=== PATIENT | female | born 1965 | race Two or more races ===

== ENCOUNTER 2024-07-30 23:58 | Emergency (ER) | payer OTHER, MEDICAID, SELFPAY ==
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
[2024-07-31 00:17] VITALS: BP 170/98; PULSE 84; O2SAT 98
[2024-07-31 00:22] VITALS: BP 148/93; PULSE 66; RESP 18; TEMP 36.7; O2SAT 95; BMI 30.6
[2024-07-31] MEDS: Cyclobenzaprine HCl 10 MG TABLET PO (04:13)
[2024-07-31] MEDS: traMADoL HCL 50 MG TABLET PO (04:13)
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
[2024-07-31 05:10] VITALS: BP 152/92; PULSE 72; RESP 16; TEMP 36.6; O2SAT 95
== END 2024-07-31 05:30 | disposition home or self-care (01) ==
PROVIDERS: Emergency Provider Internal Medicine; PCP Nurse Practitioner Family
DX: S49.92XA Unspecified injury of left shoulder and upper arm, initial encounter (principal); M79.605 Pain in left leg; M54.50 Low back pain, unspecified; R51.9 Headache, unspecified; M25.512 Pain in left shoulder; V43.52XA Car driver injured in collision with other type car in traffic accident, initial encounter; Y93.89 Activity, other specified; Y92.488 Other paved roadways as the place of occurrence of the external cause; Y99.8 Other external cause status
CPT/HCPCS: 73030; 99283